=== PATIENT | female | born 1985 | race Caucasian/White ===

== ENCOUNTER 2016-05-26 16:06 | Emergency (ER) | payer MEDICAID ==
[2016-05-26] MEDS ORDERED: FLUCONAZOLE 100 MG TABLET PO STA (19:23)
[2016-05-26] MEDS ORDERED: metroNIDAZOLE 250 MG TABLET PO STA (19:23)
[2016-05-26] MEDS ORDERED: metroNIDAZOLE 250 MG TABLET PO ONE (19:30)
[2016-05-26] MEDS ORDERED: FLUCONAZOLE 100 MG TABLET PO ONE (19:30)
== END 2016-05-26 20:03 | disposition home or self-care (01) ==
DX: N76.0 Acute vaginitis (principal); B96.89 Other specified bacterial agents as the cause of diseases classified elsewhere; R30.0 Dysuria; F17.200 Nicotine dependence, unspecified, uncomplicated
CPT/HCPCS: 81003; 87210; 87491; 87591; 99283; A9270

== ENCOUNTER 2016-07-09 19:43 | Emergency (ER) | payer MEDICAID ==
[2016-07-09] MEDS ORDERED: DEXAMETHASONE 10 MG/ML VIAL PO STA (20:31)
[2016-07-09] MEDS ORDERED: AZITHROMYCIN 250 MG TABLET PO STA (20:31)
[2016-07-09] MEDS ORDERED: DEXAMETHASONE 10 MG/ML VIAL ONE (20:33)
[2016-07-09] MEDS ORDERED: CHERRY SYRUP 10 ML UDC PO ONE (20:33)
[2016-07-09] MEDS ORDERED: AZITHROMYCIN 250 MG TABLET PO ONE (20:33)
== END 2016-07-09 20:57 | disposition home or self-care (01) ==
DX: O99.512 Diseases of the respiratory system complicating pregnancy, second trimester (principal); J45.21 Mild intermittent asthma with (acute) exacerbation; Z3A.20 20 weeks gestation of pregnancy; O99.89 Other specified diseases and conditions complicating pregnancy, childbirth and the puerperium; H66.002 Acute suppurative otitis media without spontaneous rupture of ear drum, left ear
CPT/HCPCS: 99283; 99284; A9270

== ENCOUNTER 2016-11-01 20:37 | Emergency (ER) | payer MEDICAID ==
--- NOTE | 2016-11-01 21:04 | ED Physician Documentation ---
PD HPI DYSPNEA - Stated complaint Stated Complaint: SOA/36WK OB - Chief complaint Chief Complaint: Abd Pain - History obtained from History obtained from: Patient - History of Present Illness Timing - onset: How many days ago (2) Timing - duration: Days (2) Timing - details: Gradual onset, Waxing and waning Pain level now: 3 Improved by: Other (no ameliorating factors) Worsened by: Other (no exacerbating factors) Associated symptoms: No: Fever Similar symptoms before: Has not had sx before - Additional information Additional information: 36 weeks (), c/o 2-3 days of episodic RUQ and epigastric pain, worse with palpation but no inciting factors. mild nausea, no vomiting. Mild dyspnea, episodic. Review of Systems Constitutional: denies: Fever, Chills, Sweats GI: reports: Abdominal Pain, Nausea. 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 - Present Medications Home Medications: Ambulatory Orders Medication Instructions Recorded Confirmed Albuterol Sulfate [Proair Hfa 2 puffs IH QID #1 hfa.aer.ad 09/03/15 11/01/16 Inhaler] [place]-3 Fatty Acids [Fish Oil] 1 cap PO DAILY 07/09/16 11/01/16 Prenatl Vit6/Iron/FA/B12/Ca/D3 1 tab PO DAILY 07/09/16 11/01/16 [Mteryti Combo Pack] Acyclovir 400 mg PO QID 11/01/16 11/01/16 Headache Pill With Caffine 11/01/16 Metformin HCl 500 mg PO DAILY 11/01/16 11/01/16 Metformin HCl [Fortamet] 1,000 mg PO BID 11/01/16 11/01/16 Nifedipine [Nifedipine ER] 30 mg PO BID 11/01/16 11/01/16 - Allergies Allergies/Adverse Reactions: Allergies Allergy/AdvReac Type Severity Reaction Status Date / Time erythromycin base Allergy Intermediate Rash Verified 11/01/16 20:43 [Erythromycin Base] latex Allergy Mild Rash Verified 11/01/16 20:43 - Social History Does the pt smoke?: No Smoking Status: Former smoker Does the pt drink ETOH?: Yes Does the pt have substance abuse?: No - Immunizations Immunizations are current?: Yes - POLST Patient has POLST: No PD ED PE NORMAL - Vitals Vital signs reviewed: Yes - General General: Alert and oriented X 3, No acute distress, Well developed/nourished - Cardiac Cardiac: RRR, No murmur - Respiratory Respiratory: No respiratory distress, Clear bilaterally - Abdomen Abdomen: Soft, Other (mild RUQ and epigastric tenderness without rebound or guarding. appropriately gravid) - Derm Derm: Normal color, Warm and dry - Extremities Extremities: No edema Results - Vitals Vitals: Vital Signs - 24 hr 11/01/16 11/01/16 11/01/16 20:39 21:06 21:45 Temperature 36.2 C L 36.3 C L Heart Rate 102 H 98 94 Respiratory 16 20 18 Rate Blood Pressure 148/92 H 133/62 H O2 Saturation 98 97 11/01/16 11/01/16 11/02/16 22:50 23:38 00:04 Temperature 36.2 C L Heart Rate 89 93 98 Respiratory 16 18 18 Rate Blood Pressure 133/69 H 115/71 129/63 O2 Saturation 97 95 95 Oxygen O2 Source Room air - Labs Labs: Laboratory Tests 11/01/16 11/01/16 11/01/16 21:20 21:20 22:41 WBC 9.4 RBC 4.00 L Hgb 11.3 L Hct 34.2 L MCV 85.6 MCH 28.3 MCHC 33.1 RDW 16.2 H Plt Count 213 MPV 7.8 L Neut # 4.8 Lymph # 3.5 [place] # 0.8 Eos # 0.2 Baso # 0.0 Absolute Nucleated RBC 0.00 Nucleated RBCs 0.0 Sodium 135 Potassium 3.8 Chloride 105 Carbon Dioxide 21 Anion Gap 9.0 BUN 9 Creatinine 0.5 Estimated GFR (MDRD) 143 Glucose 102 H Calcium 8.9 Total Bilirubin 0.2 AST 24 ALT 26 Alkaline Phosphatase 91 Total Protein 6.6 L Albumin 2.8 L Globulin 3.8 Albumin/Globulin Ratio 0.7 L Lipase 20 L Urine Color YELLOW Urine Clarity CLEAR Urine pH 7.0 Ur Specific [place] 1.020 Urine Protein NEGATIVE Urine Glucose (UA) NEGATIVE Urine Ketones NEGATIVE Urine Occult Blood NEGATIVE Urine Nitrite NEGATIVE Urine Bilirubin NEGATIVE Urine Urobilinogen 0.2 (NORMAL) Ur Leukocyte Esterase NEGATIVE Ur Microscopic Review NOT INDICATED Urine Culture Comments NOT INDICATED - Rads (name of study) RUQ US Radiology: Prelim report reviewed, See rad report PD MEDICAL DECISION MAKING - ED course Complexity details: reviewed results, re-evaluated patient, considered differential, d/w patient Departure - Departure Disposition: 01 Home, Self Care Clinical Impression: Abdominal pain, Condition: Good Instructions: ED Abdominal Pain Unkn Cause Follow-Up: Anthony Segundo MD [Primary Care Provider] - Discharge Date/Time: 11/02/16 00:07
[2016-11-01 21:30] LABS: BASOPHILS % (AUTO) 0.4 %; EOSINOPHILS # (AUTO) 0.2 10^3/uL (0.0-0.7); EOSINOPHILS % (AUTO) 1.7 %; HCT - HEMATOCRIT 34.2 % (37.0-47.0); HGB - HEMOGLOBIN 11.3 g/dL (12.0-16.0); LYMPHOCYTES # (AUTO) 3.5 10^3/uL (1.5-3.5); LYMPHOCYTES % (AUTO) 37.6 %; MEAN CORPUSCULAR HEMOGLOBIN 28.3 pg (27.0-31.0); MEAN CORPUSCULAR HGB CONC 33.1 g/dL (32.0-36.0); MEAN CORPUSCULAR VOLUME 85.6 fL (81.0-99.0); MEAN PLATELET VOLUME 7.8 fL (7.9-10.8); MONOCYTES # (AUTO) 0.8 10^3/uL (0.0-1.0); NEUTROPHILS # (AUTO) 4.8 10^3/uL (1.5-6.6); NEUTROPHILS % (AUTO) 51.3 %; RED CELL DISTRIBUTION WIDTH 16.2 % (12.0-15.0); UNCORRECTED WHITE BLOOD COUNT 9.4 x10^3/uL; WHITE BLOOD COUNT 9.4 x10^3/uL (4.8-10.8)
[2016-11-01 21:44] LABS: ALBUMIN/GLOBULIN RATIO 0.7 (1.0-2.2); BILIRUBIN,TOTAL 0.2 mg/dL (0.2-1.0); CALCIUM 8.9 mg/dL (8.5-10.3); CREATININE 0.5 mg/dL (0.4-1.0); POTASSIUM 3.8 mmol/L (3.5-5.0); TOTAL PROTEIN 6.6 g/dL (6.7-8.2)
--- NOTE | 2016-11-01 22:57 | Ultrasound Preliminary Report ---
Exam: US Abdomen Limited IMPRESSION: 1. Partially contracted gallbladder. Wall appears thickened, possibly due to nondistention. No other evidence of cholecystitis. 2. No biliary dilatation. [facility] SITE ID: [id number]
--- NOTE | 2016-11-01 23:00 | Ultrasound Report ---
EXAM: ABDOMEN ULTRASOUND LIMITED, RUQ EXAM DATE: 11/01/2016 10:40 PM. CLINICAL HISTORY: 36 weeks . Right upper quadrant pain. COMPARISON: CT, 12/06/2014. TECHNIQUE: Real-time scanning was performed with static images obtained. FINDINGS: Liver: Normal in size and echotexture. 17.0 cm. Main portal vein flow: Hepatopetal. Gallbladder: Partially contracted. Wall thickness measures 4.7 mm. No stones are seen. No focal tende rness over the gallbladder. Biliary System: CBD measures 4.1 mm. No intrahepatic or extrahepatic ductal dilatation. Other: Right kidney measures 10.7 cm. There is a cyst measuring 8 x 7 x 7 mm. No hydronephrosis is se en. IMPRESSION: 1. Partially contracted gallbladder. Wall appears thickened, possibly due to nondistention. No other evidence of cholecystitis. 2. No biliary dilatation. [facility] Referring Provider Line: [phone] SITE ID: [id number]
[2016-11-01 23:10] LABS: BILIRUBIN,URINE NEGATIVE (NEGATIVE)
[2016-11-01 23:15] LABS: UA CHARGE (STRIP ONLY) YES; UR CULTURE IF IND NOT INDICATED
[2016-11-02 00:05] VITALS: BP 129/63
== END 2016-11-02 00:07 | disposition home or self-care (01) ==
LOC: ED 20:37
DX: O26.893 Other specified pregnancy related conditions, third trimester (principal); O99.513 Diseases of the respiratory system complicating pregnancy, third trimester; J45.909 Unspecified asthma, uncomplicated; Z3A.36 36 weeks gestation of pregnancy; R10.11 Right upper quadrant pain; R10.13 Epigastric pain; Z87.891 Personal history of nicotine dependence
CPT/HCPCS: 36415; 76705; 80053; 81001; 81003; 83690; 85025; 87086; 99283

== ENCOUNTER 2017-03-03 12:36 | Emergency (ER) | payer MEDICAID ==
[2017-03-03 12:46] VITALS: BP 148/94
[2017-03-03 13:09] LABS: RAPID STREP SCREEN REAGENT QC YELLOW (YELLOW)
--- NOTE | 2017-03-03 13:35 | ED Physician Documentation ---
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 She felt the muscle soreness was significant and the sore throat was significant she is developed a fever and she is coming to the emergency department. Review of Systems Constitutional: reports: Fever, Chills, Myalgias, Fatigue, Sweats Eyes: denies: Decreased vision Ears: denies: Ear pain Nose: reports: Rhinorrhea / runny nose, Congestion Throat: reports: Sore throat Cardiac: denies: Chest pain / pressure, Palpitations Respiratory: reports: Cough. denies: Dyspnea GI: reports: Nausea. 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: No - Immunizations Immunizations are current?: Yes - POLST Patient has POLST: No PD ED PE NORMAL - Vitals Vital signs reviewed: Yes (Hypertensive) - General General: Alert and oriented X 3, No acute distress, Well developed/nourished - HEENT HEENT: Atraumatic, PERRL, EOMI, Other (Right TM is mildly inflamed the left is clear the pharynx is with generalized erythema.) - Neck Neck: Supple, no meningeal sign, No bony TTP - Cardiac Cardiac: RRR, No murmur - Respiratory Respiratory: No respiratory distress, Other (Scattered rhonchi and wheezes.) - Abdomen Abdomen: Soft, Non tender - Back Back: No CVA TTP, No spinal TTP - Derm Derm: Normal color, Warm and dry, No rash - Extremities Extremities: No deformity, No edema - Neuro Neuro: No motor deficit, No sensory deficit - Psych Psych: Normal mood, Normal affect Results - Vitals Vitals: Vital Signs - 24 hr 03/03/17 12:44 Temperature 36.8 C Heart Rate 96 Respiratory 18 Rate Blood Pressure 148/94 H O2 Saturation 99 Oxygen O2 Source Room air - Labs Labs: Laboratory Tests 03/03/17 12:50 Group A Strep Rapid POSITIVE H PD MEDICAL DECISION MAKING - ED course Complexity details: reviewed results, re-evaluated patient, considered differential, d/w patient ED course: 29-year-old female with acute strep pharyngitis is given dexamethasone 10 mg orally here in the emergency department and we will place her on some amoxicillin and excuse her from work for 3 days. Departure - Departure Disposition: 01 Home, Self Care Clinical Impression: Strep pharyngitis Condition: Stable Instructions: ED Strep Pharyngitis Conf Follow-Up: Anthony Segundo MD [Primary Care Provider] - Prescriptions: Amoxicillin 875 mg PO BID #20 tablet Comments: Today in the Emergency Department your blood pressure was elevated. This can happen from the stress of the visit itself, from a current illness or circumstance or from uncontrolled hypertension. If you take blood pressure medications take your usual mediations, have your blood pressure re-checked in an appropriate setting and follow up any elevation with your primary care doctor. Forms: Activity restrictions
[2017-03-03] MEDS: DEXAMETHASONE 10 MG/ML VIAL PO STA (13:37)
[2017-03-03] MEDS ORDERED: DEXAMETHASONE 10 MG/ML VIAL ONE ×2 (13:39→13:41)
== END 2017-03-03 13:41 | disposition home or self-care (01) ==
LOC: ED 12:36
DX: J02.0 Streptococcal pharyngitis (principal); R03.0 Elevated blood-pressure reading, without diagnosis of hypertension
CPT/HCPCS: 87430; 99283

== ENCOUNTER 2017-03-06 10:06 | Emergency (ER) | payer MEDICAID ==
[2017-03-06 10:17] VITALS: BP 128/90
--- NOTE | 2017-03-06 12:18 | ED Physician Documentation ---
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 - Present Medications Home Medications: Ambulatory Orders Medication Instructions Recorded Confirmed Albuterol Sulfate [Proair Hfa 2 puffs IH PRN PRN 03/03/17 03/06/17 Inhaler] Amoxicillin 875 mg PO BID #20 tablet 03/03/17 03/06/17 Fluticasone [Flonase] 1 sprays ABELARDO BID PRN #1 bottle 03/06/17 - Allergies Allergies/Adverse Reactions: Allergies Allergy/AdvReac Type Severity Reaction Status Date / Time erythromycin base Allergy Intermediate Rash Verified 03/06/17 10:16 [Erythromycin Base] latex Allergy Mild Rash Verified 03/06/17 10:16 - Social History Does the pt smoke?: No Smoking Status: Never smoker Does the pt drink ETOH?: Yes Does the pt have substance abuse?: No - Immunizations Immunizations are current?: Yes - POLST Patient has POLST: No PD ED PE NORMAL - Vitals Vital signs reviewed: Yes - HEENT HEENT: Moist mucous membranes, Pharynx benign. No: Ears normal (dull s erythema on L) - Cardiac Cardiac: RRR - Respiratory Respiratory: No respiratory distress, Clear bilaterally Results - Vitals Vitals: Vital Signs - 24 hr 03/06/17 10:15 Temperature 36.3 C L Heart Rate 98 Respiratory 16 Rate Blood Pressure 128/90 H O2 Saturation 100 Oxygen O2 Source Nasal cannula Departure - Departure Disposition: 01 Home, Self Care Clinical Impression: Serous otitis media Qualifiers: Chronicity: acute Laterality: right Recurrence: not specified as recurrent Qualified Code(s): H65.01 - Acute serous otitis media, right ear Condition: Good Prescriptions: Fluticasone [Flonase] 1 sprays ABELARDO BID PRN #1 bottle PRN Reason: allergies Comments: May return to work
== END 2017-03-06 12:40 | disposition home or self-care (01) ==
LOC: ED 10:06
DX: H65.01 Acute serous otitis media, right ear (principal)
CPT/HCPCS: 99283

== ENCOUNTER 2017-06-09 17:58 | Emergency (ER) | payer MEDICAID ==
[2017-06-09 18:36] VITALS: BP 142/83
--- NOTE | 2017-06-09 19:46 | XRAY Preliminary Report ---
Exam: XR CHEST 2 VIEW X-RAY IMPRESSION: Normal 2-view chest radiography. [facility] SITE ID: [id number]
--- NOTE | 2017-06-09 19:49 | XRAY Report ---
EXAM: CHEST RADIOGRAPHY EXAM DATE: 06/09/2017 07:22 PM. CLINICAL HISTORY: Productive cough for 3 days. COMPARISON: None. TECHNIQUE: 2 views. FINDINGS: Lungs/Pleura: No focal opacities evident. No pleural effusion. No pneumothorax. Normal volumes. Mediastinum: Heart and mediastinal contours are unremarkable. Other: None. IMPRESSION: Normal 2-view chest radiography. [facility] Referring Provider Line: [phone] SITE ID: [id number]
--- NOTE | 2017-06-09 19:55 | ED Physician Documentation ---
PD HPI URI - Stated complaint Stated Complaint: COUGH/DIFF BREATHING - Chief complaint Chief Complaint: Resp - History obtained from History obtained from: Patient, Family - History of Present Illness Timing - onset: How many weeks ago (2) Timing duration: Weeks (2) Timing details: Gradual onset Pain level max: 0 Pain level now: 0 Associated symptoms: Nasal congestion, Rhinorrhea, Dry cough, Dyspnea (wheezing , using her inhalers). 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 - Present Medications Home Medications: Ambulatory Orders Medication Instructions Recorded Confirmed Albuterol Sulfate [Proair Hfa 2 puffs IH PRN PRN 03/03/17 06/09/17 Inhaler] Amoxicillin 875 mg PO BID #20 tablet 03/03/17 06/09/17 Fluticasone [Flonase] 1 sprays ABELARDO BID PRN #1 bottle 03/06/17 06/09/17 Benzonatate [Tessalon Perle] 100 - 200 mg PO TID PRN #30 capsule 06/09/17 predniSONE [Prednisone] 40 mg PO DAILY #10 tablet 06/09/17 - Allergies Allergies/Adverse Reactions: Allergies Allergy/AdvReac Type Severity Reaction Status Date / Time erythromycin base Allergy Intermediate Rash Verified 03/06/17 10:16 [Erythromycin Base] latex Allergy Mild Rash Verified 03/06/17 10:16 - Social History Does the pt smoke?: Yes Smoking Status: Current every day smoker Does the pt drink ETOH?: Yes Does the pt have substance abuse?: No - Immunizations Immunizations are current?: Yes - POLST Patient has POLST: No PD ED PE NORMAL - Vitals Vital signs reviewed: Yes - General General: Alert and oriented X 3, No acute distress, Well developed/nourished - HEENT HEENT: PERRL, Ears normal, Moist mucous membranes, Pharynx benign - Neck Neck: Supple, no meningeal sign, No adenopathy - Cardiac Cardiac: RRR, Strong equal pulses - Respiratory Respiratory: No respiratory distress, Other (mild wheezing B) - Abdomen Abdomen: Soft, Non tender, Non distended - Derm Derm: Warm and dry, No rash - Extremities Extremities: No edema, No calf tenderness / cord - Neuro Neuro: Alert and oriented X 3 - Psych Psych: Normal mood, Normal affect Results - Vitals Vitals: Vital Signs - 24 hr 06/09/17 18:33 Temperature 36.6 C Heart Rate 90 Respiratory 22 Rate Blood Pressure 142/83 H O2 Saturation 99 Oxygen O2 Source Room air - Rads (name of study) cxr Radiology: Prelim report reviewed, EMP read contemporaneously, See rad report ( normal) PD MEDICAL DECISION MAKING - ED course Complexity details: reviewed results, re-evaluated patient, considered differential, d/w patient, d/w family ED course: Patient is a 32-year-old female who presents to the emergency department with what appears to be a viral upper respiratory infection. She is very well- appearing, nontoxic. Afebrile. No hypoxia. No respiratory distress. Will place on steroids and antitussives for home. We will have her follow-up with her doctor for further evaluation and care. Normal x-ray. Patient counseled regarding signs and symptoms for which I believe and urgent re-evaluation would be necessary. Patient with good understanding of and agreement to plan and is comfortable going home at this time This document was made in part using voice recognition software. While efforts are made to proofread this document, sound alike and grammatical errors may occur. Departure - Departure Disposition: Home, Self Care Clinical Impression: Viral URI Condition: Good Instructions: ED URI Viral W Wheezing Follow-Up: Anthony Segundo MD [Primary Care Provider] - Within 1 week Prescriptions: Benzonatate [Tessalon Perle] 100 - 200 mg PO TID PRN #30 capsule PRN Reason: Cough predniSONE [Prednisone] 40 mg PO DAILY #10 tablet Comments: Please keep the tessalon perles away from your children as it can be toxic to them. Return if you worsen. Discharge Date/Time: 06/09/17 19:58
== END 2017-06-09 19:58 | disposition home or self-care (01) ==
LOC: ED 17:58
DX: J06.9 Acute upper respiratory infection, unspecified (principal); B97.89 Other viral agents as the cause of diseases classified elsewhere; F17.200 Nicotine dependence, unspecified, uncomplicated
CPT/HCPCS: 71046; 99283

== ENCOUNTER 2017-12-21 21:33 | Emergency (ER) | payer MEDICAID ==
[2017-12-21 21:48] VITALS: BP 130/81
[2017-12-21] MEDS ORDERED: predniSONE 20 MG TABLET PO STA (22:23)
--- NOTE | 2017-12-21 22:25 | ED Physician Documentation ---
History of Present Illness - Stated complaint Stated Complaint: RASH/TILLEY - Chief complaint Chief Complaint: General - History obtained from History obtained from: Patient - History of Present Illness Timing: How many weeks ago (several) Pain level max: 0 Pain level now: 0 Improved by: itching Worsened by: nothing - Additonal information Additional information: Patient is a 32-year-old female who presents to the emergency department complaining of a diffuse rash for the past several weeks. Unclear etiology. Denies any new detergents, soaps or lotions. No new medications. No recent travel. The lesions are itchy. Review of Systems Constitutional: denies: Fever, Chills Ears: denies: Ear pain Nose: denies: Rhinorrhea / runny nose, Congestion Throat: denies: Sore throat Cardiac: denies: Chest pain / pressure Respiratory: denies: Cough GI: denies: Vomiting, Diarrhea : denies: Now EGA Musculoskeletal: reports: Joint pain (occasionally has joint pains.). 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 Medications Home Medications: Ambulatory Orders Medication Instructions Recorded Confirmed Albuterol Sulfate [Proair Hfa 2 puffs IH PRN PRN 03/03/17 06/09/17 Inhaler] Amoxicillin 875 mg PO BID #20 tablet 03/03/17 06/09/17 Fluticasone [Flonase] 1 sprays ABELARDO BID PRN #1 bottle 03/06/17 06/09/17 Benzonatate [Tessalon Perle] 100 - 200 mg PO TID PRN #30 capsule 06/09/17 predniSONE [Prednisone] 40 mg PO DAILY #10 tablet 06/09/17 predniSONE [Deltasone] 10 mg PO [id number] #42 tab 12/21/17 - Allergies Allergies/Adverse Reactions: Allergies Allergy/AdvReac Type Severity Reaction Status Date / Time erythromycin base Allergy Intermediate Rash Verified 12/21/17 21:47 [Erythromycin Base] latex Allergy Mild Rash Verified 12/21/17 21:47 - Social History Does the pt smoke?: Yes Smoking Status: Current every day smoker Does the pt drink ETOH?: Yes Does the pt have substance abuse?: No - Immunizations Immunizations are current?: Yes - POLST Patient has POLST: No PD ED PE NORMAL - Vitals Vital signs reviewed: Yes - General General: Alert and oriented X 3, No acute distress - HEENT HEENT: Moist mucous membranes - Neck Neck: Supple, no meningeal sign - Cardiac Cardiac: RRR - Respiratory Respiratory: No respiratory distress, Clear bilaterally - Abdomen Abdomen: Soft, Non tender, Non distended - Derm Derm: Other (Diffuse papular exanthem over the bilateral upper and lower extremities. Some areas are scabbed. No evidence of secondary infection. No cellulitis. No drainage.) - Extremities Extremities: No edema - Neuro Neuro: Alert and oriented X 3 - Psych Psych: Normal mood, Normal affect Results - Vitals Vitals: Vital Signs - 24 hr 12/21/17 21:45 Temperature 37.0 C Heart Rate 92 Respiratory 17 Rate Blood Pressure 130/81 H O2 Saturation 100 Oxygen O2 Source Room air PD MEDICAL DECISION MAKING - ED course Complexity details: considered differential, d/w patient ED course: Patient is a 32-year-old female with a rash of unclear etiology. Will trial on steroids and have her follow-up with her doctor for further care. May benefit from a dermatology referral as well. She is not . Patient counseled regarding signs and symptoms for which I believe and urgent re-evaluation would be necessary. Patient with good understanding of and agreement to plan and is comfortable going home at this time This document was made in part using voice recognition software. While efforts are made to proofread this document, sound alike and grammatical errors may occur. - Sepsis Event Vital Signs: Vital Signs - 24 hr 12/21/17 21:45 Temperature 37.0 C Heart Rate 92 Respiratory 17 Rate Blood Pressure 130/81 H O2 Saturation 100 Oxygen O2 Source Room air Departure - Departure Disposition: Home, Self Care Clinical Impression: Dermatitis Condition: Good Instructions: ED Dermatitis Non Specific Rash Follow-Up: Anthony Segundo MD [Primary Care Provider] - Within 1 week Prescriptions: predniSONE [Deltasone] 10 mg PO [id number] #42 tab Comments: Use the prednisone as directed. Return if you worsen. Follow-up with your doctor for further evaluation and care. The cause of your symptoms is unclear tonight. Discharge Date/Time: 12/21/17 22:31
== END 2017-12-21 22:31 | disposition home or self-care (01) ==
LOC: ED 21:33
DX: L30.9 Dermatitis, unspecified (principal); F17.200 Nicotine dependence, unspecified, uncomplicated
CPT/HCPCS: 99283; J7512

== ENCOUNTER 2017-12-25 15:02 | Emergency (ER) | payer MEDICAID ==
--- NOTE | 2017-12-25 15:10 | ED Physician Documentation ---
PD HPI SKIN - Stated complaint Stated Complaint: RASH - History obtained from History obtained from: Patient - History of Present Illness Timing - onset: How many weeks ago (2) Timing - duration: Weeks Timing - details: Gradual onset (initially lower legs after camping. Thought it might be bug bites. Was camping [facility] Still present Location: [place] Quality / character: Itchy Improved by: No: Oral steroids Associated symptoms: No: Fever, Myalgias, Abd pain, N/V/D Contributing factors: Unknown Similar symptoms before: Has not had sx before Recently seen: Emergency Dept (2 days ago ad Rx with oral steroids.) Review of Systems Constitutional: denies: Fever, Myalgias Nose: denies: Rhinorrhea / runny nose, Congestion Throat: denies: Sore throat Respiratory: denies: Cough GI: denies: Vomiting, Diarrhea Neurologic: denies: Focal weakness, Numbness PD PAST MEDICAL HISTORY - Past Medical History Respiratory: Asthma Psych: Depression, Anxiety - Past Surgical History 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 - Present Medications Home Medications: Ambulatory Orders Medication Instructions Recorded Confirmed Albuterol Sulfate [Proair Hfa 2 puffs IH PRN PRN 03/03/17 06/09/17 Inhaler] predniSONE [Deltasone] 10 mg PO [id number] #42 tab 12/21/17 Cetirizine [ZyrTEC] 10 mg PO DAILY #30 tablet 12/25/17 Permethrin 5% Cream 1 applic TOP ONCE #1 tube 12/25/17 - Allergies Allergies/Adverse Reactions: Allergies Allergy/AdvReac Type Severity Reaction Status Date / Time erythromycin base Allergy Intermediate Rash Verified 12/25/17 15:11 [Erythromycin Base] latex Allergy Mild Rash Verified 12/25/17 15:11 - Social History Does the pt smoke?: Yes Smoking Status: Current every day smoker Does the pt drink ETOH?: Yes Does the pt have substance abuse?: No - Immunizations Immunizations are current?: Yes - POLST Patient has POLST: No PD ED PE NORMAL - Vitals Vital signs reviewed: Yes - General General: Alert and oriented X 3, Well developed/nourished - HEENT HEENT: Pharynx benign - Neck Neck: Supple, no meningeal sign, No adenopathy - Cardiac Cardiac: RRR, No murmur - Respiratory Respiratory: Clear bilaterally - Abdomen Abdomen: Normal bowel sounds, Soft, Non tender - Derm Derm: Normal color, Other (diffusely itchy, with spots of excoriations and some have brown pigmentation after healing. No pustules per se. ) Results - Vitals Vitals: Vital Signs - 24 hr 12/25/17 12/25/17 15:08 15:50 Temperature 36.4 C L 37.2 C Heart Rate 95 87 Respiratory 18 16 Rate Blood Pressure 141/87 H 128/74 O2 Saturation 100 99 Oxygen O2 Source Room air PD MEDICAL DECISION MAKING - ED course Complexity details: considered differential (ongoing itchy rash that started on legs after camping and has spread. No change with steroids after 2 days. Consider infestation such as scabies. ), d/w patient - Sepsis Event Vital Signs: Vital Signs - 24 hr 12/25/17 12/25/17 15:08 15:50 Temperature 36.4 C L 37.2 C Heart Rate 95 87 Respiratory 18 16 Rate Blood Pressure 141/87 H 128/74 O2 Saturation 100 99 Oxygen O2 Source Room air Departure - Departure Disposition: 01 Home, Self Care Clinical Impression: Dermatitis Condition: Stable Record reviewed to determine appropriate education?: Yes Instructions: ED Dermatitis Non Specific Rash, ED Scabies Follow-Up: Anthony Segundo MD [Primary Care Provider] - [facility] [Provider Group] Prescriptions: Cetirizine [ZyrTEC] 10 mg PO DAILY #30 tablet Permethrin 5% Cream 1 applic TOP ONCE #1 tube Comments: Continue with the current steroids. This looks possibly like a parasitic infestation station such as scabies. Try the permethrin body wash once as per package directions. Also add cetirizine antihistamine daily in case this is just an immune response. This should help. If it is an infestation such as scabies, the itching will not go away immediately but will taper down over several days subsequent to treating the parasites. Follow-up with dermatology, I provided a referral number; call them and check to see if you have to see your primary first in order to get a referral. Forms: Activity restrictions Discharge Date/Time: 12/25/17 15:50
[2017-12-25 16:00] VITALS: BP 128/74
== END 2017-12-25 15:50 | disposition home or self-care (01) ==
LOC: ED 15:02
DX: L30.9 Dermatitis, unspecified (principal)
CPT/HCPCS: 99283

== ENCOUNTER 2018-05-11 11:13 | Emergency (ER) | payer MEDICAID ==
[2018-05-11 13:58] VITALS: BP 128/74
--- NOTE | 2018-05-11 14:11 | ED Physician Documentation ---
PD HPI URI - Stated complaint Stated Complaint: EAR PX/ACHES ALL OVER - Chief complaint Chief Complaint: Heent - History obtained from History obtained from: Patient - History of Present Illness Timing - onset: How many weeks ago (2) Timing duration: Weeks (two weeks of upper congestion, sinus pressure, and some cough/ sore throat. Now ear hurting a lot the past couple of days.) Timing details: Gradual onset Associated symptoms: Ear pain, Nasal congestion, Sore throat, Dry cough. No: Fever, NVD Contributing factors: No: Sick contact Similar symptoms before: Has not had sx before Recently seen: Not recently seen Review of Systems Constitutional: reports: Myalgias. denies: Fever Ears: reports: Ear pain (couple of days) Nose: reports: Rhinorrhea / runny nose, Congestion (2 weeks) Throat: reports: Sore throat Respiratory: reports: Cough. 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 - Present Medications Home Medications: Ambulatory Orders Medication Instructions Recorded Confirmed Cephalexin [Keflex] 500 mg PO TID #21 capsule 05/11/18 Cetirizine [ZyrTEC] 10 mg PO DAILY #15 tablet 05/11/18 Dexamethasone [Decadron] 4 mg PO DAILY #5 tablet 05/11/18 Famotidine 20 mg PO DAILY #30 tablet 05/11/18 - Allergies Allergies/Adverse Reactions: Allergies Allergy/AdvReac Type Severity Reaction Status Date / Time erythromycin base Allergy Intermediate Rash Verified 05/11/18 13:55 [Erythromycin Base] latex Allergy Mild Rash Verified 05/11/18 13:55 - Social History Does the pt smoke?: Yes Smoking Status: Current every day smoker Does the pt drink ETOH?: Yes Does the pt have substance abuse?: No - Immunizations Immunizations are current?: Yes - POLST Patient has POLST: No PD ED PE NORMAL - Vitals Vital signs reviewed: Yes - General General: Alert and oriented X 3, No acute distress, Well developed/nourished - HEENT HEENT: Pharynx benign. No: Ears normal (left is normal. right with TM redness and fullness, some distal canal redness and edema. ) - Neck Neck: Supple, no meningeal sign, No adenopathy - Cardiac Cardiac: RRR, No murmur - Respiratory Respiratory: Clear bilaterally - Abdomen Abdomen: Soft, Non tender - Derm Derm: Normal color, Warm and dry - Neuro Neuro: Alert and oriented X 3, No motor deficit, Normal speech Results - Vitals Vitals: Oxygen O2 Source Room air - Labs Labs: Microbiology 05/11/18 11:38 Group A Strep Throat Culture - Final Throat MIXED OROPHARYNGEAL BRUNILDA PRESENT. NO BETA STREP PRESENT IN CULTURE. Laboratory Tests 05/11/18 11:38 Group A Strep Rapid Negative PD MEDICAL DECISION MAKING - ED course Complexity details: considered differential, d/w patient Departure - Departure Disposition: Home, Self Care Clinical Impression: Otitis media Qualifiers: Otitis media type: suppurative Chronicity: acute Laterality: right Recurrence: not specified as recurrent Spontaneous tympanic membrane rupture: without sponta neous rupture Qualified Code(s): H66.001 - Acute suppurative otitis media without spontaneous rupture of ear drum, right ear Condition: Stable Record reviewed to determine appropriate education?: Yes Instructions: ED Otitis Media Acute Adult Follow-Up: Anthony Segundo MD [Primary Care Provider] - Prescriptions: Cephalexin [Keflex] 500 mg PO TID #21 capsule Cetirizine [ZyrTEC] 10 mg PO DAILY #15 tablet Dexamethasone [Decadron] 4 mg PO DAILY #5 tablet Famotidine 20 mg PO DAILY #30 tablet Comments: Stay well-hydrated. Tylenol or ibuprofen if needed for pains. Cephalexin antibiotic 3 times a day for a week for the ear infection. Decadron steroid anti-inflammatory to promote better drainage and decrease symptoms. Cetirizine antihistamine to decrease the fluid in the middle ear. Famotidine acid reducing medicine daily for the next week or 2 to help with the stomach discomfort. Recheck if not improving over the next several days. Discharge Date/Time: 05/11/18 14:53
== END 2018-05-11 14:53 | disposition home or self-care (01) ==
LOC: ED 11:13
DX: H66.001 Acute suppurative otitis media without spontaneous rupture of ear drum, right ear (principal); F17.200 Nicotine dependence, unspecified, uncomplicated
CPT/HCPCS: 87070; 87430; 99283

== ENCOUNTER 2018-07-30 11:30 | Emergency (ER) | payer MEDICAID ==
--- NOTE | 2018-07-30 12:11 | XRAY Report ---
Reason: cough, green sputum Procedure Date: 07/30/2018 Accession Number: [id number] / [id number] Procedure: XR - Chest 2 View X-Ray CPT Code: 72175 FULL RESULT: EXAM: CHEST RADIOGRAPHY EXAM DATE: 07/30/2018 11:51 AM. CLINICAL HISTORY: Cough, green sputum. COMPARISON: CHEST 2 VIEW 06/09/2017 7:16 PM. TECHNIQUE: 2 views. FINDINGS: Lungs/Pleura: No focal opacities evident. No pleural effusion. No pneumothorax. Normal volumes. Mediastinum: Heart and mediastinal contours are unremarkable. Other: None. IMPRESSION: No acute airspace disease is detected. RADIA
[2018-07-30] MEDS ORDERED: BENZONATATE 100 MG CAPSULE PO STA (14:03)
[2018-07-30] MEDS ORDERED: DEXAMETHASONE 10 MG/ML VIAL PO STA (14:03)
[2018-07-30] MEDS ORDERED: ALBUTEROL NEB 2.5 MG/3 ML INH STA (14:03)
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
[2018-07-30 14:17] VITALS: BP 130/92
== END 2018-07-30 14:30 | disposition home or self-care (01) ==
LOC: ED 11:30
DX: J06.9 Acute upper respiratory infection, unspecified (principal); J45.909 Unspecified asthma, uncomplicated; F17.200 Nicotine dependence, unspecified, uncomplicated; S80.12XA Contusion of left lower leg, initial encounter; X58.XXXA Exposure to other specified factors, initial encounter
CPT/HCPCS: 71046; 94640; 94664; 99283; A9270

== ENCOUNTER 2018-08-19 13:34 | Emergency (ER) | payer MEDICAID ==
[2018-08-19 13:40] VITALS: BP 135/79
[2018-08-19 14:00] LABS: BILIRUBIN,URINE NEGATIVE (NEGATIVE); KETONES,URINE (UA) TRACE mg/dL (NEGATIVE); LEUKOCYTE ESTERASE, URINE MODERATE (NEGATIVE); NITRITE,URINE POSITIVE (NEGATIVE); OCCULT BLOOD,URINE SMALL (NEGATIVE)
--- NOTE | 2018-08-19 14:31 | ED Physician Documentation ---
PD HPI FEMALE - Stated complaint Stated Complaint: FEMALE - Chief complaint Chief Complaint: UTI - History obtained from History obtained from: Patient - History of Present Illness Timing - onset: How many days ago (2) Timing - duration: Days (2) Timing - details: Gradual onset, Still present Associated symptoms: Dysuria, Urinary frequency. No: Fever, Abdominal pain, Vaginal discharge Contributing factors: No: Exposed to STD Review of Systems Constitutional: denies: Fever, Chills, Myalgias GI: reports: Nausea. denies: Abdominal Pain, Vomiting : reports: Dysuria, Frequency. 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 Medications Home Medications: Ambulatory Orders Medication Instructions Recorded Confirmed Benzonatate [Tessalon Perle] 100 - 200 mg PO TID PRN #30 capsule 07/30/18 RX: Albuterol Sulf [Ventolin Hfa 1 - 2 puffs INH Q4HR PRN #1 inhaler 07/30/18 Inhaler] Sulfamethox/Trimeth 800/160 1 each PO BID #14 tablet 08/19/18 [Bactrim Ds 800/160] - Allergies Allergies/Adverse Reactions: Allergies Allergy/AdvReac Type Severity Reaction Status Date / Time erythromycin base Allergy Intermediate Rash Verified 08/19/18 13:40 [Erythromycin Base] latex Allergy Mild Rash Verified 08/19/18 13:40 - Social History Does the pt smoke?: Yes Smoking Status: Current every day smoker Does the pt drink ETOH?: Yes Does the pt have substance abuse?: No - Immunizations Immunizations are current?: Yes - POLST Patient has POLST: No PD ED PE NORMAL - Vitals Vital signs reviewed: Yes - General General: Alert and oriented X 3, No acute distress, Well developed/nourished - Abdomen Abdomen: Soft, Non tender - Female Female : Deferred - Back Back: No CVA TTP - Derm Derm: Normal color, Warm and dry Results - Vitals Vitals: Vital Signs - 24 hr 08/19/18 13:38 Temperature 36.5 C Heart Rate 99 Respiratory 16 Rate Blood Pressure 135/79 H O2 Saturation 100 Oxygen O2 Source Room air - Labs Labs: Laboratory Tests 08/19/18 08/19/18 13:43 13:43 Urine Color ORANGE Urine Clarity HAZY Urine pH 7.0 Ur Specific [place] 1.020 1.020 Urine Protein WIND TURBINE PERFORMANCE ENGINEER Urine Glucose (UA) WIND TURBINE PERFORMANCE ENGINEER Urine Ketones TRACE Urine Occult Blood SMALL H Urine Nitrite POSITIVE H Urine Bilirubin NEGATIVE Urine Urobilinogen WIND TURBINE PERFORMANCE ENGINEER Ur Leukocyte Esterase MODERATE H Urine RBC 11-25 H Urine WBC >25 H Ur Squamous Epith Cells FEW Squamous Urine Bacteria Many H Ur Microscopic Review INDICATED Urine Culture Comments INDICATED Urine HCG, Qual NEGATIVE PD MEDICAL DECISION MAKING - ED course Complexity details: reviewed results, considered differential, d/w patient Departure - Departure Disposition: Home, Self Care Clinical Impression: Urinary tract infection Qualifiers: Urinary tract infection type: acute cystitis Hematuria presence: without hematuria Qualified Code(s): N30.00 - Acute cystitis without hematuria Condition: Stable Record reviewed to determine appropriate education?: Yes Instructions: ED UTI Cystitis Female Follow-Up: Anthony Segundo MD [Primary Care Provider] - Prescriptions: Sulfamethox/Trimeth 800/160 [Bactrim Ds 800/160] 1 each PO BID #14 tablet Comments: Stay well-hydrated. Continue the Azo as needed. Tylenol or ibuprofen if needed for pains or discomfort. Bactrim antibiotic twice daily if for a week. Recheck if not improved over the next several days. Follow-up with urology once the referrals are through. Discharge Date/Time: 08/19/18 14:55
[2018-08-19 14:39] LABS: CLARITY,URINE HAZY (CLEAR)
[2018-08-19 14:42] LABS: BACTERIA,URINE Many /HPF (None Seen); SQUAMOUS EPITHELIAL CELL,UR FEW Squamous (<= Few)
[2018-08-19 14:43] LABS: HCG UR QUAL NEGATIVE
[2018-08-19] MEDS ORDERED: SULFAMETH/TRIMETH DS 800/160 MG TABLET PO STA (14:47)
--- NOTE | 2018-08-23 05:51 | ED Physician Documentation ---
ED Addendum - Addendum Addendum: 08/23/18 05:49 Chart accessed for culture review. Urine culture grows e. coli, resistant to bactrim. Sensitive to nitrofurantoin and thus recommend discontinue bactrim and start macrobid 100mg PO BID x 7 days
== END 2018-08-19 14:55 | disposition home or self-care (01) ==
LOC: ED 13:34
DX: N30.00 Acute cystitis without hematuria (principal); F17.200 Nicotine dependence, unspecified, uncomplicated
CPT/HCPCS: 81001; 81025; 87086; 87181; 99283; A9270; 81003

== ENCOUNTER 2018-09-08 14:08 | Emergency (ER) | payer MEDICAID ==
[2018-09-08 14:15] VITALS: BP 146/101
[2018-09-08 14:25] LABS: BILIRUBIN,URINE NEGATIVE (NEGATIVE); GLUCOSE, URINE (UA) NEGATIVE (NEGATIVE); KETONES,URINE (UA) NEGATIVE (NEGATIVE); LEUKOCYTE ESTERASE, URINE MODERATE (NEGATIVE); NITRITE,URINE NEGATIVE (NEGATIVE); OCCULT BLOOD,URINE SMALL (NEGATIVE); PROTEIN,URINE TRACE mg/dL (NEGATIVE); UROBILINOGEN,URINE 0.2 (NORMAL) E.U./dL (NORMAL)
[2018-09-08 14:27] LABS: CLARITY,URINE CLOUDY (CLEAR); HCG UR QUAL NEGATIVE
--- NOTE | 2018-09-08 14:32 | ED Physician Documentation ---
PD HPI FEMALE - Stated complaint Stated Complaint: ABD PX - Chief complaint Chief Complaint: UTI - History obtained from History obtained from: Patient - History of Present Illness Timing - onset: How many days ago Timing - duration: Days (55) Timing - details: Gradual onset, Still present Associated symptoms: Abdominal pain, Back pain, Dysuria, Urinary frequency Contributing factors: No: Similar symptoms before: Diagnosis (uti) Recently seen: Emergency Dept - Additional information Additional information: 33-year-old female with a history of frequent urinary tract infections and frequent otitis has developed symptoms of urinary tract infection with urinary urgency frequency and dysuria over the past week. She has had symptoms in a number of times previously and has recently had a treatment of urinary tract infection which was started with Septra and the urine culture and E. coli that was resistant to Septra she was placed on nitrofurantoin took medication symptoms improved and they have returned. Patient has had some generalized abdominal pain epigastric pain and bilateral flank pain. Nausea no vomiting. Review of Systems Constitutional: reports: Fever Eyes: denies: Decreased vision Ears: denies: Ear pain Nose: denies: Congestion Throat: denies: Sore throat Respiratory: denies: Dyspnea, Cough GI: reports: Abdominal Pain, Nausea. denies: Vomiting, Constipation, Diarrhea : reports: Dysuria, Frequency Skin: denies: Rash Musculoskeletal: reports: Back pain. 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 - Present Medications Home Medications: Ambulatory Orders Medication Instructions Recorded Confirmed Amox/Clav 875/125 [Augmentin] 1 each PO Q12H #14 tablet 09/08/18 Fluconazole [Diflucan] 150 mg PO ONCE #1 tablet 09/08/18 - Allergies Allergies/Adverse Reactions: Allergies Allergy/AdvReac Type Severity Reaction Status Date / Time erythromycin base Allergy Intermediate Rash Verified 09/08/18 14:15 [Erythromycin Base] latex Allergy Mild Rash Verified 09/08/18 14:15 - Social History Does the pt smoke?: Yes Smoking Status: Current every day smoker Does the pt drink ETOH?: Yes Does the pt have substance abuse?: No - Immunizations Immunizations are current?: Yes - POLST Patient has POLST: No PD ED PE NORMAL - Vitals Vital signs reviewed: Yes (tachy and hypertensive ) - General General: Alert and oriented X 3, No acute distress, Well developed/nourished - HEENT HEENT: Atraumatic, PERRL, EOMI, Pharynx benign, Other (There is minimal inflamation on the right TM and there is inflamation and distortion of the landmarks on the left. ) - Cardiac Cardiac: RRR, No murmur - Respiratory Respiratory: No respiratory distress - Abdomen Abdomen: Soft, Other (mild epigastric tenderness to palpation and R&L upper quadrant pain to palpation. ) - Back Back: No spinal TTP, Other (bilateral CVA tenderness that is not extreme. Confirmed with bedside ultrasound with tenderness to sonographic palpation. 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, No motor deficit, No sensory deficit, Normal speech Eye Opening: Spontaneous Motor: Obeys Commands Verbal: Oriented GCS Score: 15 - Psych Psych: Normal mood, Normal affect Results - Vitals Vitals: Vital Signs - 24 hr 09/08/18 14:11 Temperature 36.4 C L Heart Rate 102 H Respiratory 15 Rate Blood Pressure 146/101 H O2 Saturation 99 Oxygen O2 Source Room air - Labs Labs: Laboratory Tests 09/08/18 14:15 Urine Color YELLOW Urine Clarity CLOUDY Urine pH 6.0 Ur Specific [place] 1.020 Urine Protein TRACE Urine Glucose (UA) NEGATIVE Urine Ketones NEGATIVE Urine Occult Blood SMALL H Urine Nitrite NEGATIVE Urine Bilirubin NEGATIVE Urine Urobilinogen 0.2 (NORMAL) Ur Leukocyte Esterase MODERATE H Urine RBC 0-5 Urine WBC >25 H Ur Squamous Epith Cells FEW Squamous Urine Bacteria Few Ur Microscopic Review INDICATED Urine Culture Comments INDICATED Urine HCG, Qual NEGATIVE Procedures - Bedside sono Bedside sono by EMP: With use of bedside ultrasound the kidneys are imaged bilaterally and they are sonographically tender and without evidence of hydronephrosis or surrounding edema. PD MEDICAL DECISION MAKING - ED course Complexity details: reviewed results, re-evaluated patient, considered differential, d/w patient ED course: 33-year-old female with recurrent urinary tract infection does have flank pain and nausea she is treated with Rocephin IM for pyelonephritis. We will change her antibiotic to an appropriate anabiotic for Tim. She has had prior failure with Septra and prior cultures are reviewed for appropriate selection. Departure - Departure Disposition: 01 Home, Self Care Clinical Impression: Pyelonephritis Condition: Stable Instructions: ED Kidney Infec Female Follow-Up: [facility] [Provider Group] Prescriptions: Amox/Clav 875/125 [Augmentin] 1 each PO Q12H #14 tablet Fluconazole [Diflucan] 150 mg PO ONCE #1 tablet
[2018-09-08 14:36] LABS: BACTERIA,URINE Few /HPF (None Seen); RBC,URINE 0-5 /HPF (0-5); SQUAMOUS EPITHELIAL CELL,UR FEW Squamous (<= Few)
[2018-09-08] MEDS ORDERED: LIDOCAINE 1% 2 ML VIAL MC ONE (14:44)
[2018-09-08] MEDS ORDERED: cefTRIAXone 1 GM VIAL IM STA (14:44)
== END 2018-09-08 15:04 | disposition home or self-care (01) ==
LOC: ED 14:08
DX: N12 Tubulo-interstitial nephritis, not specified as acute or chronic (principal); F17.200 Nicotine dependence, unspecified, uncomplicated
CPT/HCPCS: 81001; 81003; 81025; 87086; 96372; 99283

== ENCOUNTER 2018-09-22 16:36 | Emergency (ER) | payer MEDICAID ==
--- NOTE | 2018-09-22 17:21 | ED Physician Documentation ---
PD HPI NVD - Stated complaint Stated Complaint: ABD PX/VOM - Chief complaint Chief Complaint: Abd Pain - History obtained from History obtained from: Patient - History of Present Illness Timing - onset: How many hours ago (5) Timing - duration: Hours (5) Timing - details: Gradual onset Pain level max: 7 Pain level now: 5 Associated symptoms: Abdominal pain. No: Fever, Dizzy, Near syncope / syncope, Weight loss, Dysuria, Hematuria, Vaginal bleeding, Vaginal dc Contributing factors: Sick contact. No: Bad food, Travel, Recent antibiotics, Alcohol use, Anticoagulated, Diabetes Improved by: Vomiting Worsened by: Eating Similar symptoms before: Has not had sx before Recently seen: Not recently seen Review of Systems Ten Systems: 10 systems reviewed and negative Constitutional: denies: Fever, Chills Throat: denies: Sore throat Cardiac: denies: Chest pain / pressure Respiratory: denies: Cough Skin: denies: Rash Musculoskeletal: denies: Neck pain, Back pain Neurologic: denies: Headache PD PAST MEDICAL HISTORY - Past Medical History Past Medical History: Yes Respiratory: Asthma Psych: Depression, Anxiety - Past Surgical History 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 - Present Medications Home Medications: Ambulatory Orders Medication Instructions Recorded Confirmed Ibuprofen [Motrin] 800 mg PO Q8H PRN #20 tablet 09/22/18 Ondansetron Odt [Zofran] 4 mg TL Q6H PRN #10 tablet 09/22/18 - Allergies Allergies/Adverse Reactions: Allergies Allergy/AdvReac Type Severity Reaction Status Date / Time erythromycin base Allergy Intermediate Rash Verified 09/22/18 16:43 [Erythromycin Base] latex Allergy Mild Rash Verified 09/22/18 16:43 - Living Situation Living Arrangement: reports: At home - Social History Does the pt smoke?: Yes Smoking Status: Current every day smoker Does the pt drink ETOH?: Yes Does the pt have substance abuse?: No - Immunizations Immunizations are current?: Yes - POLST Patient has POLST: No PD ED PE NORMAL - Vitals Vital signs reviewed: Yes - General General: Alert and oriented X 3, No acute distress, Well developed/nourished - HEENT HEENT: PERRL, Moist mucous membranes - Neck Neck: Supple, no meningeal sign - Cardiac Cardiac: RRR, No murmur, Strong equal pulses - Respiratory Respiratory: No respiratory distress, Clear bilaterally - Abdomen Abdomen: Soft, Non distended, Other (Tender palpation right lower quadrant. No peritoneal signs) - Back Back: No spinal TTP - Derm Derm: Warm and dry - Extremities Extremities: No edema - Neuro Neuro: Alert and oriented X 3 - Psych Psych: Normal mood, Normal affect Results - Vitals Vitals: Vital Signs - 24 hr 09/22/18 09/22/18 09/22/18 16:40 19:10 19:12 Temperature 36.8 C 37.8 C H Heart Rate 111 H 98 102 H Respiratory 16 20 18 Rate Blood Pressure 136/75 H 137/82 H 137/87 H O2 Saturation 100 100 99 09/22/18 20:58 Temperature Heart Rate 97 Respiratory 16 Rate Blood Pressure 146/80 H O2 Saturation 99 Oxygen O2 Source Room air - Labs Labs: Laboratory Tests 09/22/18 09/22/18 09/22/18 17:48 17:48 17:52 WBC 12.3 H RBC 4.88 Hgb 14.8 Hct 44.6 MCV 91.5 MCH 30.4 MCHC 33.3 RDW 14.1 Plt Count 210 MPV 7.6 L Neut # (Auto) 11.4 H Lymph # (Auto) 0.4 L [place] # (Auto) 0.4 Eos # (Auto) 0.1 Baso # (Auto) 0.1 Absolute Nucleated RBC 0.00 Nucleated RBC % 0.0 Sodium Potassium Chloride Carbon Dioxide Anion Gap BUN Creatinine Estimated GFR (MDRD) Glucose Calcium Total Bilirubin AST ALT Alkaline Phosphatase Total Protein Albumin Globulin Albumin/Globulin Ratio Lipase Urine Color YELLOW Urine Clarity CLEAR Urine pH 5.5 Ur Specific [place] >=1.030 H >=1.030 H Urine Protein NEGATIVE Urine Glucose (UA) NEGATIVE Urine Ketones NEGATIVE Urine Occult Blood NEGATIVE Urine Nitrite NEGATIVE Urine Bilirubin NEGATIVE Urine Urobilinogen 0.2 (NORMAL) Ur Leukocyte Esterase NEGATIVE Ur Microscopic Review NOT INDICATED Urine Culture Comments NOT INDICATED Urine HCG, Qual NEGATIVE Urine Opiates Screen NEGATIVE Ur Oxycodone Screen NEGATIVE Urine Methadone Screen NEGATIVE Ur Propoxyphene Screen NEGATIVE Ur Barbiturates Screen NEGATIVE Ur Tricyclics Screen NEGATIVE Ur Phencyclidine Scrn NEGATIVE Ur Amphetamine Screen POSITIVE H U Methamphetamines Scrn POSITIVE H U Benzodiazepines Scrn NEGATIVE Urine Cocaine Screen NEGATIVE U Cannabinoids Screen NEGATIVE 09/22/18 17:52 WBC RBC Hgb Hct MCV MCH MCHC RDW Plt Count MPV Neut # (Auto) Lymph # (Auto) [place] # (Auto) Eos # (Auto) Baso # (Auto) Absolute Nucleated RBC Nucleated RBC % Sodium 135 Potassium 3.8 Chloride 100 L Carbon Dioxide 24 Anion Gap 11.0 BUN 17 Creatinine 0.7 Estimated GFR (MDRD) 96 Glucose 126 H Calcium 9.1 Total Bilirubin 1.4 H AST 22 ALT 32 Alkaline Phosphatase 64 Total Protein 7.7 Albumin 4.2 Globulin 3.5 Albumin/Globulin Ratio 1.2 Lipase 26 Urine Color Urine Clarity Urine pH Ur Specific [place] Urine Protein Urine Glucose (UA) Urine Ketones Urine Occult Blood Urine Nitrite Urine Bilirubin Urine Urobilinogen Ur Leukocyte Esterase Ur Microscopic Review Urine Culture Comments Urine HCG, Qual Urine Opiates Screen Ur Oxycodone Screen Urine Methadone Screen Ur Propoxyphene Screen Ur Barbiturates Screen Ur Tricyclics Screen Ur Phencyclidine Scrn Ur Amphetamine Screen U Methamphetamines Scrn U Benzodiazepines Scrn Urine Cocaine Screen U Cannabinoids Screen - Rads (name of study) CT abdomen pelvis Radiology: Prelim report reviewed, EMP read contemporaneously, See rad report (Small volume abdominopelvic ascites. No acute inflammatory process. Appendix not definitively visualized, however no inflammatory process in right lower quadrant.) PD MEDICAL DECISION MAKING - ED course Complexity details: reviewed results, re-evaluated patient, considered differential, d/w patient ED course: 33-year-old female, unclear etiology of her abdominal pain. Possible ruptured ovarian cyst? She feels better after Toradol and Zofran. Tolerating p.o. without difficulty. Does not want to stay for any further evaluation at this time. She request to go home. She is well-appearing, nontoxic. Afebrile. Positive for methamphetamines, encouraged to stop using methamphetamines. Patient counseled regarding signs and symptoms for which I believe and urgent re-evaluation would be necessary. Patient with good understanding of and agreement to plan and is comfortable going home at this time This document was made in part using voice recognition software. While efforts are made to proofread this document, sound alike and grammatical errors may oc cur. Departure - Departure Disposition: 01 Home, Self Care Clinical Impression: Abdominal pain Qualifiers: Abdominal location: generalized Qualified Code(s): R10.84 - Generalized abdominal pain Vomiting Qualifiers: Vomiting type: unspecified Vomiting Intractability: non-intractable Nausea presence: with nausea Qualified Code(s): R11.2 - Nausea with vomiting, unspecified Condition: Good Instructions: ED Abdominal Pain Unkn Cause, ED Nausea Vomiting Follow-Up: your,doctor in 3 days [Other] Prescriptions: Ibuprofen [Motrin] 800 mg PO Q8H PRN #20 tablet PRN Reason: PAIN &/OR FEVER Ondansetron Odt [Zofran] 4 mg TL Q6H PRN #10 tablet PRN Reason: Nausea / Vomiting Comments: The cause of your symptoms is unclear today. Return if you worsen. If you are not improving in the next 24 hours, return for repeat evaluation. We do not clearly see your appendix on CT scan, but there is no inflammatory changes around the appendix. If you develop worsening right lower quadrant pain, you need to return to be reevaluated. Forms: Activity restrictions Discharge Date/Time: 09/22/18 21:02
[2018-09-22] MEDS ORDERED: IOVERSOL 320 100 ML VIAL IVP ONE ×2 (17:39→19:02)
[2018-09-22 17:56] LABS: MUDS CUTOFF CONCENTRATIONS CUTOFF CONC BELOW:
[2018-09-22 17:58] LABS: BASOPHILS # (AUTO) 0.1 10^3/uL (0.0-0.1); BASOPHILS % (AUTO) 0.4 %; EOSINOPHILS # (AUTO) 0.1 10^3/uL (0.0-0.7); EOSINOPHILS % (AUTO) 0.6 %; HGB - HEMOGLOBIN 14.8 g/dL (12.0-16.0); LYMPHOCYTES # (AUTO) 0.4 10^3/uL (1.5-3.5); MEAN CORPUSCULAR HEMOGLOBIN 30.4 pg (27.0-31.0); MEAN CORPUSCULAR HGB CONC 33.3 g/dL (32.0-36.0); MEAN CORPUSCULAR VOLUME 91.5 fL (81.0-99.0); MEAN PLATELET VOLUME 7.6 fL (7.9-10.8); MONOCYTES # (AUTO) 0.4 10^3/uL (0.0-1.0); NEUTROPHILS # (AUTO) 11.4 10^3/uL (1.5-6.6); PLT - PLATELET COUNT 210 10^3/uL (130-450); RED BLOOD COUNT 4.88 10^6/uL (4.20-5.40); RED CELL DISTRIBUTION WIDTH 14.1 % (12.0-15.0); WHITE BLOOD COUNT 12.3 x10^3/uL (4.8-10.8)
[2018-09-22 18:01] LABS: BILIRUBIN,URINE NEGATIVE (NEGATIVE); GLUCOSE, URINE (UA) NEGATIVE (NEGATIVE); KETONES,URINE (UA) NEGATIVE (NEGATIVE); LEUKOCYTE ESTERASE, URINE NEGATIVE (NEGATIVE); NITRITE,URINE NEGATIVE (NEGATIVE); OCCULT BLOOD,URINE NEGATIVE (NEGATIVE); PH,URINE 5.5 PH (5.0-7.5); PROTEIN,URINE NEGATIVE (NEGATIVE); UROBILINOGEN,URINE 0.2 (NORMAL) E.U./dL (NORMAL)
[2018-09-22 18:07] LABS: CLARITY,URINE CLEAR (CLEAR)
[2018-09-22 18:14] LABS: AMPHETAMINE SCREEN,URINE POSITIVE (NEGATIVE); BENZODIAZEPINES SCREEN, URINE NEGATIVE (NEGATIVE); COCAINE SCREEN URINE NEGATIVE (NEGATIVE); METHADONE SCREEN, URINE NEGATIVE (NEGATIVE); METHAMPHETAMINES SCREEN, URINE POSITIVE (NEGATIVE); OPIATE SCREEN, URINE NEGATIVE (NEGATIVE); OXYCODONE SCREEN, URINE NEGATIVE (NEGATIVE); PROPOXYPHENE SCREEN, URINE NEGATIVE (NEGATIVE); TRICYCLIC ANTIDEPRESSANT,URINE NEGATIVE (NEGATIVE)
[2018-09-22 18:15] LABS: ALBUMIN 4.2 g/dL (3.2-5.5); ALBUMIN/GLOBULIN RATIO 1.2 (1.0-2.2); BILIRUBIN,TOTAL 1.4 mg/dL (0.2-1.0); CALCIUM 9.1 mg/dL (8.5-10.3); CREATININE 0.7 mg/dL (0.4-1.0); TOTAL PROTEIN 7.7 g/dL (6.7-8.2)
[2018-09-22 18:35] LABS: HCG UR QUAL NEGATIVE
--- NOTE | 2018-09-22 20:39 | CT Report ---
Reason: RLQ abd pain Procedure Date: 09/22/2018 Accession Number: [id number] / [id number] Procedure: CT - Abdomen/Pelvis W CPT Code: FULL RESULT: EXAM: CT ABDOMEN AND PELVIS EXAM DATE: 09/22/2018 06:57 PM. CLINICAL HISTORY: COMPARISONS: ABDOMEN/PELVIS W/ 12/06/2014 4:23 AM. TECHNIQUE: Routine helical CT imaging was performed through the abdomen and pelvis. IV contrast: CE. Enteric contrast: No. Reconstructions: Coronal and sagittal. In accordance with CT protocol optimization, one or more of the following dose reduction techniques were utilized for this exam: automated exposure control, adjustment of mA and/or KV based on patient size, or use of iterative reconstructive technique. FINDINGS: Lung Bases: Unremarkable. Liver: Normal. No masses. Gallbladder/Bile Ducts: Unremarkable. Spleen: Normal. Pancreas: Normal. Adrenal Glands: Normal. Kidneys: A subcentimeter hypodense lesion in the inferior pole of right kidney is too small to characterize. No masses or hydronephrosis. Peritoneal Cavity/Bowel: Small volume abdominopelvic ascites noted. No acute inflammatory process. Appendix not definitively visualized in right lower quadrant. Pelvic Organs: Normal. The bladder and visualized pelvic organs are within normal limits. Vasculature: No aneurysms or other significant abnormality. Bones: No significant abnormality. Other: None. IMPRESSION: Small volume abdominopelvic ascites. No acute inflammatory process. Appendix not definitively visualized, however no inflammatory process in right lower quadrant. [facility]
[2018-09-22] MEDS ORDERED: KETOROLAC 30 MG/ML VIAL IVP STA (20:41)
[2018-09-22 21:02] VITALS: BP 146/80
== END 2018-09-22 21:02 | disposition home or self-care (01) ==
LOC: ED 16:36
DX: R10.84 Generalized abdominal pain (principal); R11.2 Nausea with vomiting, unspecified; R18.8 Other ascites; F15.90 Other stimulant use, unspecified, uncomplicated; F17.200 Nicotine dependence, unspecified, uncomplicated
CPT/HCPCS: 36415; 74177; 80053; 80306; 81003; 81025; 83690; 85025; 96374; 99283; Q9967; 81001; 87086